=== PATIENT | female | born 1965 | race Caucasian/White ===

== ENCOUNTER 2017-09-22 10:42 | Emergency (ER) | payer BC ==
[2017-09-22] MEDS ORDERED: Sodium Chloride 0.9% 10 ML Syringe FLUSH PRN (10:59)
--- NOTE | 2017-09-22 10:59 | EDM.PDOC ---
ED HPI GENERAL MEDICAL PROBLEM - General Chief Complaint: Back Pain or Injury Stated Complaint: [id number] BACK PAIN Time Seen by Provider: 09/22/17 10:59 Source of Information: Reports: Patient, Family, Old Records, RN, RN Notes Reviewed History Limitations: Reports: No Limitations - History of Present Illness INITIAL COMMENTS - FREE TEXT/NARRATIVE: Arrives from home by POV with c/o sudden onset of severe left lower back pain with pain and slight numbness radiating through the left buttock and down the left leg to the toes. Denies fall, or injury. Pt was just stepping out of the shower when the pain began. Denies loss of bowel or bladder control, saddle area numbness, or motor weakness. Pt feels best when she stays on her hands and knees on the floor. Pain is worse with sitting or standing and with movement of the low back or left hip. She reports a long Hx of chronic low back pain which she treats at home with a TENS unit, and has had multiple epidural steroid injections for her back pain. Onset: Today, Sudden Duration: Constant Location: Reports: Back, Radiates to (left leg/foot) Quality: Reports: Ache, Sharp Severity: Severe Improves with: Reports: Immobilization Worsens with: Reports: Other (sitting/standing), Movement Context: Reports: Other (Hx of chronic low back pain with herniated disc disease per pt.) Associated Symptoms: Reports: No Other Symptoms Treatments GAS FITTER: Reports: Acetaminophen, Other (see below) Other Treatments GAS FITTER: TENS unit - Related Data Allergies Allergy/AdvReac Type Severity Reaction Status Date / Time Sulfa (Sulfonamide Allergy Hives Verified 09/30/14 20:43 Antibiotics) sulfamethoxazole Allergy Cannot Verified 09/22/17 11:06 [From Bactrim] Remember trimethoprim [From Bactrim] Allergy Cannot Verified 09/22/17 11:06 Remember Home Meds: Home Meds EPINEPHrine [Epipen] 0.3 mg IM ASDIRECTED PRN 09/30/14 [History] Ibuprofen [Advil] 100 mg PO 09/30/14 [History] diphenhydrAMINE [Benadryl] 50 mg PO PRN 09/30/14 [History] Past Medical History Musculoskeletal History: Reports: Back Pain, Chronic Social & Family History - Family History Family Medical History: Noncontributory - Tobacco Use Smoking Status *Q: Never Smoker Second Hand Smoke Exposure: No - Alcohol Use Days Per Week of Alcohol Use: 0 - Recreational Drug Use Recreational Drug Use: No - Living Situation & Occupation Living situation: Reports: , with Family ED ROS GENERAL - Review of Systems Review Of Systems: ROS reveals no pertinent complaints other than HPI. ED EXAM,LOWER BACK PAIN/INJURY - Physical Exam Exam: See Below Exam Limited By: No Limitations General Appearance: Alert, WD/WN, No Apparent Distress, Mild Distress (due to pain) Head: Atraumatic, Normocephalic Neck: Normal Inspection, Supple, Non-Tender, Full Range of Motion Respiratory/Chest: No Respiratory Distress, Lungs Clear, Normal Breath Sounds, No Accessory Muscle Use, Chest Non-Tender Cardiovascular: Regular Rate, Rhythm, No Edema GI/Abdominal: Normal Bowel Sounds, Soft, Non-Tender, No Organomegaly, No Distention, No Abnormal Bruit (Female) Exam: Deferred Rectal (Female) Exam: Deferred Back Exam: Decreased Range of Motion (lumbar), Muscle Spasm (lumbar Left > Rt), Paraspinal Tenderness. No: CVA Tenderness (L), CVA Tenderness (R), Vertebral Tenderness Extremities: Non-Tender, No Pedal Edema, Normal Capillary Refill, Limited Range of Motion (Left hip due to pain). No: Pedal Edema, Joint Swelling, Mitesh's Sign , Increased Warmth, Pallor, Redness Neurological: Alert, Normal Mood/Affect, Normal Dorsiflexion, CN II-XII Intact, Normal Plantar Flexion, No Motor/Sensory Deficits, Oriented x 3, Other ( antalgic gait due to back pain, with pt remaining flexed at the waist for comfort) Psychiatric: Normal Affect, Normal Mood Skin Exam: Warm, Dry, Intact, Normal Color, No Rash Course - Vital Signs Last Recorded V/S: Last Vital Signs Temp 37.0 C 09/22/17 11:02 Pulse 85 09/22/17 11:02 Resp 22 H 09/22/17 11:02 BP 133/71 09/22/17 11:02 Pulse Ox 99 09/22/17 11:02 - Orders/Labs/Meds Orders: Active Orders 24 hr Category Date Time Status Peripheral IV Care [RC] . DIRECTED Care 09/22/17 11:00 Active Sodium Chloride 0.9% [Saline Flush] Med 09/22/17 10:59 Active 10 ml FLUSH ASDIRECTED PRN Peripheral IV Insertion Adult [OM.PC] Stat Oth 09/22/17 11:00 Ordered Medication Orders Sodium Chloride (Saline Flush) 10 ml FLUSH ASDIRECTED PRN PRN Reason: Keep Vein Open Last Admin: 09/22/17 12:10 Dose: 10 ml Meds: Medications Generic Name Dose Route Start Last Admin Trade Name Freq PRN Reason Stop Dose Admin Sodium Chloride 10 ml 09/22/17 10:59 09/22/17 12:10 Saline Flush FLUSH 10 ml ASDIRECTED PRN Administration Keep Vein Open Discontinued Medications Generic Name Dose Route Start Last Admin Trade Name Freq PRN Reason Stop Dose Admin Dexamethasone 20 mg 09/22/17 11:05 09/22/17 11:27 Dexamethasone IVPUSH 09/22/17 11:06 20 mg ONETIME ONE Administration Hydromorphone HCl 1 mg 09/22/17 11:06 09/22/17 11:19 Dilaudid IVPUSH 09/22/17 11:07 1 mg ONETIME ONE Administration Hydromorphone HCl 1 mg 09/22/17 12:02 09/22/17 12:10 Dilaudid IVPUSH 09/22/17 12:03 1 mg ONETIME ONE Administration Ondansetron HCl 4 mg 09/22/17 11:06 09/22/17 11:19 Zofran IV 09/22/17 11:07 4 mg ONETIME ONE Administration Orphenadrine Citrate 60 mg 09/22/17 12:03 09/22/17 12:10 Norflex IM 09/22/17 12:04 60 mg ONETIME ONE Administration - Radiology Interpretation Free Text/Narrative:: CT L-spine: No acute fx, compression deformity, or traumatic subluxation. Disc bulges at L3-L4, L4-L5, and L5-S1. Together with the ligamentum flavum hypertrophy this results in multilevel mild to moderate spinal canal stenosis. Questionable partial effacement of the lateral recess at the L4-L5 level with suggestion of mass effect on the descending L5 nerve roots B/L per Rad. report. CT Results Date: 09/22/17 CT Results Time: 13:15 Departure - Departure Time of Disposition: 13:28 Disposition: Home, Self-Care 01 Condition: Fair Clinical Impression: Acute exacerbation of chronic low back pain, Lumbar back pain with radiculopathy affecting left lower extremity, Bulging of lumbar intervertebral disc Lumbar spinal stenosis Qualifiers: Neurogenic claudication status: unspecified Qualified Code(s): M48.061 - Spinal stenosis, lumbar region without neurogenic claudication - Discharge Information Instructions: Lumbosacral Radiculopathy, Spinal Stenosis, Pain Medicine Instructions, [id number] Forms: ED Department Discharge Additional Instructions: Rest, ice packs to area of pain. Light activity as tolerated. Rx: Medrol Dose-Sam *Take with food. Rx: Percocet 5mg/325mg *No driving while under the influence of this medication. Rx: Cyclobenzaprine 10mg *No driving while under the influence of this medication. Follow up with your doctor on Saturday, for recheck and either lumbar MRI order, or referral to [employer] [facility] [employer] specialist. - My Orders Last 24 Hours: My Active Orders 09/22/17 10:59 Sodium Chloride 0.9% [Saline Flush] 10 ml FLUSH ASDIRECTED PRN 09/22/17 11:00 Peripheral IV Care [RC] . DIRECTED Peripheral IV Insertion Adult [OM.PC] Stat - Assessment/Plan Last 24 Hours: My Active Orders 09/22/17 10:59 Sodium Chloride 0.9% [Saline Flush] 10 ml FLUSH ASDIRECTED PRN 09/22/17 11:00 Peripheral IV Care [RC] . DIRECTED Peripheral IV Insertion Adult [OM.PC] Stat
[2017-09-22] MEDS ORDERED: Dexamethasone 4 MG/ML SDV IVPUSH ONE (11:05)
[2017-09-22] MEDS ORDERED: HYDROmorphone 1 MG/ML Syringe IVPUSH ONE ×2 (11:06→12:02)
[2017-09-22] MEDS ORDERED: Ondansetron 4 MG/2 ML SDV IV ONE (11:06)
== END 2017-09-22 14:41 | disposition home or self-care (01) ==
LOC: DL.ED 10:42
DX: M48.061 Spinal stenosis, lumbar region without neurogenic claudication (principal); M51.16 Intervertebral disc disorders with radiculopathy, lumbar region; Z88.2 Allergy status to sulfonamides; Z88.1 Allergy status to other antibiotic agents
CPT/HCPCS: 72131; 96372; 96374; 96375; 96376; 99284; J1100; J1170; J2360; J2405; J7050

== ENCOUNTER 2018-02-06 05:17 | Day surgery (SDC) | payer BC ==
[2018-02-06] MEDS ORDERED: fentaNYL 100 MCG/2 ML SDV IV ONE ×4 (05:18→06:41)
[2018-02-06] MEDS ORDERED: Midazolam 1 MG/ML 2 ML SDV IV ONE ×7 (05:18→06:37)
[2018-02-06] MEDS ORDERED: Sodium Chloride 0.9% 10 ML Syringe FLUSH PRN (06:00)
[2018-02-06] MEDS ORDERED: Dextrose 5%-0.45% NaCl 1,000 ML IV SCH (06:00)
[2018-02-06] MEDS ORDERED: Midazolam 1 MG/ML 2 ML SDV ONE (06:14)
[2018-02-06] MEDS ORDERED: fentaNYL 100 MCG/2 ML SDV ONE (06:14)
--- NOTE | 2018-02-06 07:17 | OR ---
DATE: 02/06/2018 PROCEDURE PERFORMED: Total colonoscopy, NBI, and cold snare polypectomy. INSTRUMENT USED: CF-H180AL Olympus video colonoscope. PREMEDICATIONS: Fentanyl 125 mcg intravenous, Versed 4 mg intravenous. Nasal O2 cannula. The procedure was done under pulse oximetry, BP recording, and project engineer chemicals. INDICATION: Screening colonoscopic examination is done for detection of any polypoid lesions and removal, endoscopic hemostasis therapy if needed. DESCRIPTION OF PROCEDURE: Initial rectal exam was unremarkable. Rigid anoscopy was normal. The colonoscope was passed with ease up to the ileocecal area. Photographs were taken of the cecum, identified by appendiceal orifice and double-bulged ileocecal folds. No bleeding was noted from any of the visualized areas at the commencement of the examination. No stricture. No vascular ectasia. No large or isolated ulcerations seen. No evidence of diffuse inflammatory bowel disease in the form of friability, contact bleeding, or ulcerations. Probing the proximal sides of folds and flexures, using adequate distention and clearing up the stool material, withdrawal of the scope was made. In the distal ascending colon, 3 mm sized benign-appearing polyp was noted, NBI views were obtained, photographs were taken, cold snare polypectomy was done, and the tissue was retrieved and sent for histopathology. No bleeding was noted from any of the visualized areas at the completion of examination. IMPRESSION: Diminutive ascending colon polyp. The patient tolerated the procedure well. [facility] /[id number]
--- NOTE | 2018-02-06 11:25 | LETTER ---
02/06/2018 Birgit Cortez MD [address] [id number] RE: CARLEYRAMONA : [address] Cortez: Ms. Ramona Claudio had colonoscopic examination done this morning and she tolerated the procedure well. I herewith send a copy of the endoscopy note and photographs for your review. Thank you. Sincerely, [facility] /[id number]
== END 2018-02-06 08:39 | disposition home or self-care (01) ==
LOC: DL.ENDO 05:17
PROVIDERS: ATTEND Internal Medicine Gastroenterology
DX: Z12.11 Encounter for screening for malignant neoplasm of colon (principal); D12.2 Benign neoplasm of ascending colon; E78.00 Pure hypercholesterolemia, unspecified; Z88.1 Allergy status to other antibiotic agents; Z80.0 Family history of malignant neoplasm of digestive organs
CPT/HCPCS: 45385; J2250; J3010; J7042